=== PATIENT | female | born 1940 | race Caucasian/White ===

== ENCOUNTER 2017-07-06 08:22 | Day surgery (SDC) | payer OTHER ==
[~2017-07-06] VITALS: Ht 165.1 cm; Wt 65.0 kg
[~2017-07-06 08:22] MED LIST: ACEASPCAF PO; ACYC400 PO; ACYC800 PO; ASCO500 PO; BROMELAINS500 MG PO; CALCA500CH PO; CELE200; CELE200 PO; CHOL10002 PO; CLARITIN10 MG PO; CODACE30 PO; CODE30 PO; CYAN1000 PO; DIAZ10; DIAZ10 PO; DIPH50 PO; DOCU100 PO; Diazepam10 MG PO; ENOX40I SC; FORMULA 303 PO; GLUCHON PO; GLUCOSAMINE CH1 EAC1 PO; HYDMOR2 PO; Hydrocortisone5 MG PO; MAGNESIUM MALATE PO; MELA3; MULVITMINF PO; NAPR500 PO; NIAC500 PO; Norco 5-325 Ta1 EACH PO; OSTEOMATRIX PO; Oxycontin20 MG PO; PB8 PO; PYRI100 PO; TEMA30 PO; VITAMIN B-1250 MG PO; [UNRECOGNIZED DRUG - OTHER] PO; [UNRECOGNIZED DRUG - OTHER] PO; [UNRECOGNIZED DRUG - OTHER] PO; [UNRECOGNIZED DRUG - OTHER] PO
[2017-07-06] MEDS ORDERED: CELE200 (08:44)
[2017-07-06] MEDS ORDERED: ACYC400 (08:47)
[2017-07-06] MEDS ORDERED: Allergy Medicat25 MG (08:48)
[2017-07-06] MEDS ORDERED: Alavert D-12 A1 EACH (08:48)
[2017-07-06] MEDS ORDERED: HYDMOR2 (08:49)
[2017-07-06] MEDS ORDERED: Flonase 0.05% N16 GM (08:50)
== END 2017-07-06 10:07 | disposition home or self-care (01) ==
LOC: ORSCSDS 08:22
PROVIDERS: Ophthalmology
PROC: 08RK3JZ Replacement of Left Lens with Synthetic Substitute, Percutaneous Approach (ICD-10-PCS; principal; 2017-07-06 10:00)
DX: H25.12 Age-related nuclear cataract, left eye (principal); H40.9 Unspecified glaucoma; K21.9 Gastro-esophageal reflux disease without esophagitis; Z79.899 Other long term (current) drug therapy
CPT/HCPCS: J2250; J3010; J3301; V2632